=== PATIENT | female | born 1995 | race Two or more races ===

== ENCOUNTER 2016-11-08 17:29 | Emergency (ER) | payer OTHER ==
[~2016-11-08] VITALS: Ht 162.6 cm; Wt 80.7 kg
[2016-11-08] MEDS ORDERED: IV NORMAL SALINE 1000ML BAG 1,000 ML IV SCH (19:20)
[2016-11-08 19:27] VITALS: BP 131/89
[2016-11-08] MEDS ORDERED: ACETAMINOPHEN 500 MG TABLET PO ONE (19:30)
[2016-11-08] MEDS ORDERED: ONDANSETRON PF 4 MG/2 ML VIAL. IV ONE (19:30)
[2016-11-08 19:52] LABS: CALCIUM 8.8 mg/dL (8.5-10.1); CREATININE 0.7 mg/dL (0.6-1.0); GFR 106.7; POTASSIUM 3.3 mmol/L (3.5-5.1)
[2016-11-08] MEDS ORDERED: ONDA4TAB10 SL (20:04)
--- NOTE | 2016-11-08 20:04 | PHYS DOC ---
Past Medical History Past Medical History: No Pertinent History Past Surgical History: No Surgical History Alcohol Use: None Drug Use: None Adult General Chief Complaint Chief Complaint: ABDOMINAL PAIN IN HPI HPI Patient is a 20 year old female approx 14 wks with single IUP who presents with mild crampy bilateral lower abdominal pain associated with nonbloody nonbilious emesis. States last time she vomited was this morning. She denies fever or chills, diarrhea, dysuria, back pain, bloody or dark stools. Review of Systems Review of Systems Constitutional: Denies fever or chills [] Eyes: Denies change in visual acuity, redness, or eye pain [] HENT: Denies nasal congestion or sore throat [] Respiratory: Denies cough or shortness of breath [] Cardiovascular: No additional information not addressed in HPI [] GI: Denies bloody stools or diarrhea [] : Denies dysuria or hematuria [] Musculoskeletal: Denies back pain or joint pain [] Integument: Denies rash or skin lesions [] Neurologic: Denies headache, focal weakness or sensory changes [] Endocrine: Denies polyuria or polydipsia [] Current Medications Current Medications Current Medications Medications (Trade) Dose Ordered Sig/Dylan Start Time Stop Time Status Last Admin Dose Admin Acetaminophen 500 mg 500 mg 1X ONCE 11/08/16 19:30 11/08/16 19:31 DC Ondansetron HCl (Zofran) 4 mg 1X ONCE 11/08/16 19:30 11/08/16 19:31 DC Sodium Chloride (Iv Sodium Chloride 0.9% 1000ml Bag) 1,000 ml @ 1,000 mls/hr Q1H 11/08/16 19:20 11/08/16 20:19 DC Allergies Allergies Allergies Coded Allergies Type Severity Reaction Last Updated Verified No Known Drug Allergies 11/13/15 No Physical Exam Physical Exam Constitutional: Well developed, well nourished, no acute distress, non-toxic appearance. [] HENT: Normocephalic, atraumatic, bilateral external ears normal, oropharynx moist, nose normal. [] Eyes: PERRLA, EOMI. [] Neck: Normal range of motion, supple. [] Cardiovascular:Heart rate regular rhythm [] Lungs & Thorax: Bilateral breath sounds clear to auscultation [] Abdomen: Bowel sounds normal, soft, no tenderness, gravid below umbilicus. [] Skin: Warm, dry, no erythema, no rash. [] Back: No tenderness, no CVA tenderness. [] Extremities: No tenderness, ROM intact, no edema. [] Neurologic: Alert and oriented X 3, normal motor function, normal sensory function, no focal deficits noted. [] Psychologic: Affect normal, judgement normal, mood normal. [] Current Patient Data Vital Signs Vital Signs Date Time Temp Pulse Resp B/P Pulse Ox O2 Delivery O2 Flow Rate FiO2 11/08/16 19:27 114 131/89 98 Room Air 11/08/16 17:52 98.8 16 98.8 Lab Values Laboratory Tests Test 11/08/16 18:20 11/08/16 19:10 POC Urine HCG, Qualitative Hcg positive (Negative) Sodium Level 138mmol/L (136-145) Potassium Level 3.3mmol/L (3.5-5.1) L Chloride Level 103mmol/L (98-107) Carbon Dioxide Level 23mmol/L (21-32) Anion Gap 12 (6-14) Blood Urea Nitrogen 5mg/dL (7-20) L Creatinine 0.7mg/dL (0.6-1.0) Estimated GFR (Cockcroft-Gault) 106.7 Glucose Level 113mg/dL (70-99) H Calcium Level 8.8mg/dL (8.5-10.1) Laboratory Tests 11/08/16 19:10 Course & Med Decision Making Course & Med Decision Making Pertinent Labs and Imaging studies reviewed. (See chart for details) Bedside ultrasound performed and interpreted by me showing single IUP with heart rate of 153. Laboratory evaluation is unremarkable. She is feeling better after medications and tolerating oral intake. She would like to go home. Return precautions given. She understands and agrees with plan. Dragon Disclaimer Dragon Disclaimer This electronic medical record was generated, in whole or in part, using a voice recognition dictation system. Departure Departure Impression: Primary Impression: Abdominal pain during Additional Impression: Nausea and vomiting Disposition: HOME, SELF-CARE Condition: STABLE Referrals: NO PCP (PCP) Patient Instructions: Abdominal Pain During , [id number] Additional Instructions: Take Tylenol as needed for pain. Take Zofran as needed for nausea. Follow-up with your OB doctor within one week. Return for any concerns. Scripts Ondansetron (Zofran Odt)4 Mg Tab.rapdis1 Tab SL Q8HRS #10 TAB Prov:Mahad DAVENPORT MD 11/08/16 Problem Qualifiers Primary Impression: Abdominal pain during Trimester: second trimester Qualified Code: O26.892 - Other specified related conditions, second trimester Additional Impression: Nausea and vomiting Vomiting type: unspecified Vomiting Intractability: non-intractable Qualified Code: R11.2 - Nausea with vomiting, unspecified Mahad DAVENPORT MD Nov 08, 2016 20:04
== END 2016-11-08 20:27 | disposition home or self-care (01) ==
LOC: ER 17:29
DX: O26.892 Other specified pregnancy related conditions, second trimester (principal); R10.31 Right lower quadrant pain; R10.32 Left lower quadrant pain; O21.0 Mild hyperemesis gravidarum; Z3A.14 14 weeks gestation of pregnancy
CPT/HCPCS: 36415; 80048; 81025; 99285-25

== ENCOUNTER 2016-12-08 20:29 | Emergency (ER) | payer SELFPAY ==
[~2016-12-08] VITALS: Ht 162.6 cm; Wt 80.7 kg
[~2016-12-08 20:29] MED LIST: ONDA4TAB10 SL
[2016-12-08 21:05] VITALS: BP 124/76
[2016-12-08 21:21] LABS: BASO # 0.1 x10^3/uL (0.0-0.2); BASO % 1 % (0-3); EOS % 0 % (0-3); HEMATOCRIT 35.8 % (36.0-47.0); HEMOGLOBIN 11.8 g/dL (12.0-15.5); LYMPH # 2.5 x10^3/uL (1.0-4.8); LYMPH % 20 % (24-48); MEAN CORPUSCULAR HEMOGLOBIN 27 pg (25-35); MEAN CORPUSCULAR HGB CONC 33 g/dL (31-37); MEAN CORPUSCULAR VOLUME 81 fL (79-100); MONO % 5 % (0-9); NEUT % 74 % (31-73); PLATELET COUNT 355 x10^3/uL (140-400); RED BLOOD COUNT 4.45 x10^6/uL (3.50-5.40); RED CELL DISTRIBUTION WIDTH 15.4 % (11.5-14.5); WHITE BLOOD COUNT 12.5 x10^3/uL (4.0-11.0)
[2016-12-08 21:22] LABS: BILIRUBIN,URINE NEGATIVE (NEG); GLUCOSE,URINE NEGATIVE (NEG); NITRITE,URINE NEGATIVE (NEG); PH,URINE 6.5; PROTEIN,URINE NEGATIVE (NEG-TRACE)
--- NOTE | 2016-12-08 21:25 | PHYS DOC ---
Past Medical History Past Medical History: No Pertinent History Past Surgical History: No Surgical History Alcohol Use: None Drug Use: None Adult General Chief Complaint Chief Complaint: VAGINAL BLEEDING HPI HPI Patient is a 20 year old female who presents with complaint of vaginal bleeding and lower abdominal and pelvic cramping. Patient states that her bleeding started earlier today and has currently resolved. Patient is approximately 18 weeks with estimated date of delivery to be April. Patient follows a Dr. Martins for care. Patient states that she had a small amount of bleeding earlier today but has had none since. Patient states that she has had no complications noted throughout her . Patient states that she is having mild pressure-like pain in her lower abdomen. Denies nausea, fevers, or vomiting. Patient has not taken any medications to help with her symptoms. Patient denies any known exacerbating factors for her pain. Review of Systems Review of Systems Constitutional: Denies fever or chills [] Eyes: Denies change in visual acuity, redness, or eye pain [] HENT: Denies nasal congestion or sore throat [] Respiratory: Denies cough or shortness of breath [] Cardiovascular: Denies chest pain or edema [] GI: Denies abdominal pain, nausea, vomiting, bloody stools or diarrhea [] : Pelvic pain, vaginal bleeding [] Musculoskeletal: Denies back pain or joint pain [] Integument: Denies rash or skin lesions [] Neurologic: Denies headache, focal weakness or sensory changes [] Endocrine: Denies polyuria or polydipsia [] Current Medications Current Medications Current Medications Medications (Trade) Dose Ordered Sig/[facility] Start Time Stop Time Status Last Admin Dose Admin Sodium Chloride 1,000 ml @ 1,000 mls/hr Q1H 12/08/16 21:30 12/08/16 22:29 12/08/16 21:24 1,000 MLS/HR Allergies Allergies Allergies Coded Allergies Type Severity Reaction Last Updated Verified No Known Drug Allergies 11/13/15 No Physical Exam Physical Exam Constitutional: Well developed, well nourished, no acute distress, non-toxic appearance. [] HENT: Normocephalic, atraumatic, bilateral external ears normal, oropharynx moist, no oral exudates, nose normal. [] Eyes: PERRLA, EOMI, conjunctiva normal, no discharge. [] Neck: Normal range of motion, no tenderness, supple, no stridor. [] Cardiovascular:Heart rate regular rhythm, no murmur [] Lungs & Thorax: Bilateral breath sounds clear to auscultation [] Abdomen: Bowel sounds normal, soft, no tenderness, no masses, no pulsatile masses. Pelvic: Normal external exam, no visible blood in vaginal canal, cervical os closed, no cervical motion tenderness, no midline or bilateral adnexal tenderness on bimanual exam [] Skin: Warm, dry, no erythema, no rash. [] Back: No tenderness, no CVA tenderness. [] Extremities: No tenderness, no cyanosis, no clubbing, ROM intact, no edema. [] Neurologic: Alert and oriented X 3, normal motor function, normal sensory function, no focal deficits noted. [] Current Patient Data Vital Signs Vital Signs Date Time Temp Pulse Resp B/P (MAP) Pulse Ox O2 Delivery O2 Flow Rate FiO2 12/08/16 21:05 98.2 76 20 124/76 (92) 99 Room Air 98.2 Lab Values Laboratory Tests Test 12/08/16 20:14 12/08/16 21:05 12/08/16 21:09 POC Urine HCG, Qualitative Hcg positive (Negative) Urine Collection Type Unknown Urine Color Yellow Urine Clarity Clear Urine pH 6.5 Urine Specific [place] 1.015 Urine Protein Negative mg/dL (NEG-TRACE) Urine Glucose (UA) Negative mg/dL (NEG) Urine Ketones (Stick) Negative mg/dL (NEG) Urine Blood Trace (NEG) Urine Nitrite Negative (NEG) Urine Bilirubin Negative (NEG) Urine Urobilinogen Dipstick 1.0 mg/dL (0.2 mg/dL) Urine Leukocyte Esterase Negative (NEG) Urine RBC Occ /HPF (0-2) Urine WBC 1-4 /HPF (0-4) Urine Squamous Epithelial Cells Mod /LPF Urine Bacteria Moderate /HPF (0-FEW) Urine Mucus Slight /LPF White Blood Count 12.5 x10^3/uL (4.0-11.0) H Red Blood Count 4.45 x10^6/uL (3.50-5.40) Hemoglobin 11.8 g/dL (12.0-15.5) L Hematocrit 35.8 % (36.0-47.0) L Mean Corpuscular Volume 81 fL (79-100) Mean Corpuscular Hemoglobin 27 pg (25-35) Mean Corpuscular Hemoglobin Concent 33 g/dL (31-37) Red Cell Distribution Width 15.4 % (11.5-14.5) H Platelet Count 355 x10^3/uL (140-400) Neutrophils (%) (Auto) 74 % (31-73) H Lymphocytes (%) (Auto) 20 % (24-48) L Monocytes (%) (Auto) 5 % (0-9) Eosinophils (%) (Auto) 0 % (0-3) Basophils (%) (Auto) 1 % (0-3) Neutrophils # (Auto) 9.3 x10^3uL (1.8-7.7) H Lymphocytes # (Auto) 2.5 x10^3/uL (1.0-4.8) Monocytes # (Auto) 0.6 x10^3/uL (0.0-1.1) Eosinophils # (Auto) 0.1 x10^3/uL (0.0-0.7) Basophils # (Auto) 0.1 x10^3/uL (0.0-0.2) Prothrombin Time 12.3 SEC (11.7-14.0) Prothrombin Time INR 1.0 (0.8-1.1) PTT 27 SEC (24-38) Sodium Level 138 mmol/L (136-145) Potassium Level 4.2 mmol/L (3.5-5.1) Chloride Level 102 mmol/L (98-107) Carbon Dioxide Level 25 mmol/L (21-32) Anion Gap 11 (6-14) Blood Urea Nitrogen 9 mg/dL (7-20) Creatinine 0.5 mg/dL (0.6-1.0) L Estimated GFR (Cockcroft-Gault) 157.3 Glucose Level 87 mg/dL (70-99) Calcium Level 9.0 mg/dL (8.5-10.1) Magnesium Level 1.6 mg/dL (1.8-2.4) L Laboratory Tests 12/08/16 21:09 Laboratory Tests 12/08/16 21:09 Microbiology 12/08/16 Wet Prep - Final, Complete EKG EKG Not performed [] Radiology/Procedures Radiology/Procedures Limited bedside transabdominal ultrasound are formed and interpreted by myself: Intrauterine , heart rate 151 bpm, frequent movements, no significant pelvic free fluid [] Course & Med Decision Making Course & Med Decision Making Pertinent Labs and Imaging studies reviewed. (See chart for details) Patient's ultrasound showed a normal viable intrauterine . Based off of patient's estimated date of delivery, the patient currently is 18 weeks and 1 day estimated gestational age. The patient's urine shows evidence of leukocytes and bacteria and patient will be started Macrobid. Advised follow-up with patient's SECURITIES ANALYST in the next 3-4 days. Advised return emergency department for any worsening symptoms. Dragon Disclaimer Dragon Disclaimer This electronic medical record was generated, in whole or in part, using a voice recognition dictation system. Departure Departure Impression: Primary Impression: Vaginal bleeding during , antepartum Additional Impression: UTI (urinary tract infection) Disposition: 01 HOME, SELF-CARE Condition: IMPROVED Referrals: NO PCP (PCP) ISABELLE MARTINS MD Patient Instructions: - Urinary Tract Infection, Vaginal Bleeding During , Second Trimester Additional Instructions: Follow-up with Dr. Martins in the next 3-4 days. Return to the emergency department for any worsening symptoms. Scripts Nitrofurantoin Monohyd/M-Cryst (MACROBID 100 MG CAPSULE) 100 Mg Capsule 1 CAP PO BID, #14 CAP Prov: REMBERTO CARRION MD 12/08/16 Problem Qualifiers Additional Impression: UTI (urinary tract infection) Urinary tract infection type: site unspecified Hematuria presence: without hematuria Qualified Codes: N39.0 - Urinary tract infection, site not specified REMBERTO CARRION MD December 08, 2016 21:25
[2016-12-08 21:29] LABS: CREATININE 0.5 mg/dL (0.6-1.0); GFR 157.3; MAGNESIUM 1.6 mg/dL (1.8-2.4); POTASSIUM 4.2 mmol/L (3.5-5.1)
[2016-12-08] MEDS ORDERED: IV NORMAL SALINE 1000ML BAG 1,000 ML IV SCH (21:30)
[2016-12-08 21:31] LABS: BACTERIA,URINE MODERATE /HPF (0-FEW); RBC,URINE OCC /HPF (0-2)
[2016-12-08 21:32] LABS: SQUAMOUS EPITHELIAL CELL,UR MOD /LPF
[2016-12-08 21:32] LABS: PROTHROMBIN TIME PATIENT 12.3 SEC (11.7-14.0)
[2016-12-08] MEDS ORDERED: NITR100C62 PO (22:25)
== END 2016-12-08 22:50 | disposition home or self-care (01) ==
LOC: ER 20:29
DX: O46.92 Antepartum hemorrhage, unspecified, second trimester (principal); O23.42 Unspecified infection of urinary tract in pregnancy, second trimester; Z3A.18 18 weeks gestation of pregnancy
CPT/HCPCS: 80048; 81001; 83735; 84703; 85027; 85610; 85730; 86900; 86901; 87086; 96360; 99285; J7030; Q0111; 36415; 81025; 87491; 87591

== ENCOUNTER 2017-04-01 17:59 | Observation (INO) | payer OTHER ==
[~2017-04-01 17:59] MED LIST changes: +NITR100C62 PO
[2017-04-01] MEDS ORDERED: IV RINGERS,LACTATED 1000ML 1,000 ML IV SCH (19:17)
[2017-04-01 19:49] LABS: BILIRUBIN,URINE NEGATIVE (NEG); GLUCOSE,URINE NEGATIVE (NEG); NITRITE,URINE NEGATIVE (NEG); PROTEIN,URINE NEGATIVE (NEG-TRACE)
[2017-04-01 19:56] LABS: BARBITURATES NEG (NEG); BENZODIAZEPINES NEG (NEG); CANNABINOIDS NEG (NEG); COCAINE NEG (NEG); METHADONE NEG (NEG); OPIATES NEG (NEG); PHENCYCLIDINE NEG (NEG)
[2017-04-01 19:58] LABS: BACTERIA,URINE FEW /HPF (0-FEW); RBC,URINE 0 /HPF (0-2); SQUAMOUS EPITHELIAL CELL,UR MOD /LPF
== END 2017-04-01 20:24 | disposition home or self-care (01) ==
LOC: 3 SO LND 17:59
PROVIDERS: ADMIT Specialist; ATTEND Specialist
DX: O26.853 Spotting complicating pregnancy, third trimester (principal); Z3A.34 34 weeks gestation of pregnancy
CPT/HCPCS: 80307; 81001; G0378; G0379; G0479

== ENCOUNTER 2017-04-23 16:42 | Emergency (ER) | payer OTHER ==
[~2017-04-23] VITALS: Ht 162.6 cm; Wt 81.6 kg
--- NOTE | 2017-04-23 18:24 | PHYS DOC ---
Past Medical History Past Medical History: No Pertinent History Additional Past Medical Histor: preeclampsia Past Surgical History: Alcohol Use: None Drug Use: None Adult General Chief Complaint Chief Complaint: HYPERTENSION HPI HPI Patient is a 21 year old four-day female who delivered at this facility who presents from patient's MECH[employer]ICS [employer] office with report of hypertension. Patient's blood pressure noted to be 150/100 on ED arrival. Patient denies headache, vision changes, chest pain, shortness of breath, or abdominal pain . She does persistent lower extremity swelling. No other acute symptoms or complaints. Patient is not currently on antihypertensive medications. She denies taking blood pressure medications during and denies prior history of hypertension. Patient's MECHANICS HANDY[employer] is Dr. Martins. [] Review of Systems Review of Systems ROS as per HPI. Current Medications Current Medications Current Medications Medications (Trade) Dose Ordered Sig/Dylan Start Time Stop Time Status Last Admin Dose Admin Nifedipine (Procardia Xl) 30 mg DAILY 04/23/17 17:30 04/23/17 19:54 DC 04/23/17 17:44 30 MG Allergies Allergies Allergies Coded Allergies Type Severity Reaction Last Updated Verified No Known Drug Allergies 11/13/15 No Physical Exam Physical Exam Constitutional: Well developed, well nourished, no acute distress, non-toxic appearance. [] HENT: Normocephalic, atraumatic, bilateral external ears normal, oropharynx moist, no oral exudates, nose normal. [] Eyes: PERRLA, EOMI, conjunctiva normal, no discharge. [] Neck: Normal range of motion, no tenderness, supple, no stridor. [] Cardiovascular:Heart rate regular rhythm, no murmur [] Lungs & Thorax: Bilateral breath sounds clear to auscultation [] Abdomen: Bowel sounds normal, soft, no tenderness, no masses, no pulsatile eliezer. [] Extremities: No tenderness, 1+ symmetric pitting edema. Negative Homans signs.. [] Neurologic: Alert and oriented X 3, cranial nerves II through XII grossly intact , normal motor function, normal sensory function, no focal deficits noted. [] Psychologic: Affect normal, judgement normal, mood normal. [] Current Patient Data Vital Signs Vital Signs Date Time Temp Pulse Resp B/P (MAP) Pulse Ox O2 Delivery O2 Flow Rate FiO2 04/23/17 19:30 80 20 98 04/23/17 17:44 142/97 04/23/17 17:00 98.3 Room Air 98.3 Lab Values Laboratory Tests Test 04/23/17 18:22 04/23/17 18:35 Urine Collection Type Unknown Urine Color Red Urine Clarity Cloudy Urine pH 7.5 Urine Specific [place] 1.015 Urine Protein 30 mg/dL (NEG-TRACE) Urine Glucose (UA) Negative mg/dL (NEG) Urine Ketones (Stick) Negative mg/dL (NEG) Urine Blood Large (NEG) Urine Nitrite Positive (NEG) Urine Bilirubin Negative (NEG) Urine Urobilinogen Dipstick 0.2 mg/dL (0.2 mg/dL) Urine Leukocyte Esterase Large (NEG) Urine RBC >40 /HPF (0-2) Urine WBC 20-40 /HPF (0-4) Urine Squamous Epithelial Cells Few /LPF Urine Bacteria Many /HPF (0-FEW) Urine Mucus Slight /LPF White Blood Count 14.6 x10^3/uL (4.0-11.0) H Red Blood Count 4.60 x10^6/uL (3.50-5.40) Hemoglobin 11.7 g/dL (12.0-15.5) L Hematocrit 36.5 % (36.0-47.0) Mean Corpuscular Volume 79 fL (79-100) Mean Corpuscular Hemoglobin 26 pg (25-35) Mean Corpuscular Hemoglobin Concent 32 g/dL (31-37) Red Cell Distribution Width 16.0 % (11.5-14.5) H Platelet Count 384 x10^3/uL (140-400) Neutrophils (%) (Auto) 72 % (31-73) Lymphocytes (%) (Auto) 21 % (24-48) L Monocytes (%) (Auto) 6 % (0-9) Eosinophils (%) (Auto) 2 % (0-3) Basophils (%) (Auto) 1 % (0-3) Neutrophils # (Auto) 10.4 x10^3uL (1.8-7.7) H Lymphocytes # (Auto) 3.0 x10^3/uL (1.0-4.8) Monocytes # (Auto) 0.8 x10^3/uL (0.0-1.1) Eosinophils # (Auto) 0.2 x10^3/uL (0.0-0.7) Basophils # (Auto) 0.1 x10^3/uL (0.0-0.2) Sodium Level 140 mmol/L (136-145) Potassium Level 3.9 mmol/L (3.5-5.1) Chloride Level 102 mmol/L (98-107) Carbon Dioxide Level 30 mmol/L (21-32) Anion Gap 8 (6-14) Blood Urea Nitrogen 9 mg/dL (7-20) Creatinine 0.5 mg/dL (0.6-1.0) L Estimated GFR (Cockcroft-Gault) 155.7 BUN/Creatinine Ratio 18 (6-20) Glucose Level 88 mg/dL (70-99) Calcium Level 8.8 mg/dL (8.5-10.1) Total Bilirubin 0.2 mg/dL (0.2-1.0) Aspartate Amino Transferase (AST) 15 U/L (15-37) Alanine Aminotransferase (ALT) 16 U/L (14-59) Alkaline Phosphatase 122 U/L (46-116) H Total Protein 7.2 g/dL (6.4-8.2) Albumin 2.8 g/dL (3.4-5.0) L Albumin/Globulin Ratio 0.6 (1.0-1.7) L Laboratory Tests 04/23/17 18:35 Laboratory Tests 04/23/17 18:35 EKG EKG [] Radiology/Procedures Radiology/Procedures [] Course & Med Decision Making Course & Med Decision Making Pertinent Labs and Imaging studies reviewed. (See chart for details) [Patient's recent inpatient labs reviewed without evidence of end-stage organ disease. Patient's blood pressure elevated in the emergency department. however , the patient is asymptomatic. Additional labs will be obtained to rule out progression or recurrent preeclampsia in as part of.. Case reviewed with Dr. Martins. Recommendations are to discharge home on Procardia with close follow-up in office. Blood pressure improved with treatment in the ED. Return precautions reviewed. Patient verbalizes understanding agreement discharge instructions prior to departure.] Dragon Disclaimer Dragon Disclaimer This electronic medical record was generated, in whole or in part, using a voice recognition dictation system. Departure Departure Impression: Primary Impression: Hypertension Additional Impression: Preeclampsia in period Disposition: 01 HOME, SELF-CARE Referrals: NO PCP (PCP) ISABELLE MARTINS MD Patient Instructions: Hypertension During , [id number] Additional Instructions: Please take newly prescribed blood pressure medication as directed and follow- up with Dr. Hernandes in the office in 3-5 days for reevaluation of blood pressure. He develop new or worsening symptoms including headache, change of vision, chest pain, shortness of breath or worsening leg swelling, please return to the emergency department. Problem Qualifiers KAM KLEIN DO Apr 23, 2017 18:24
[2017-04-23 18:35] LABS: BILIRUBIN,URINE NEGATIVE (NEG); GLUCOSE,URINE NEGATIVE (NEG); NITRITE,URINE POSITIVE (NEG); PH,URINE 7.5; PROTEIN,URINE 30 mg/dL (NEG-TRACE); UROBILINOGEN,URINE 0.2 mg/dL (0.2 mg/dL)
[2017-04-23 18:45] LABS: BACTERIA,URINE MANY /HPF (0-FEW); RBC,URINE >40 /HPF (0-2); SQUAMOUS EPITHELIAL CELL,UR FEW /LPF; WBC,URINE 20-40 /HPF (0-4)
[2017-04-23 18:46] LABS: BASO # 0.1 x10^3/uL (0.0-0.2); BASO % 1 % (0-3); EOS % 2 % (0-3); HEMATOCRIT 36.5 % (36.0-47.0); HEMOGLOBIN 11.7 g/dL (12.0-15.5); LYMPH % 21 % (24-48); MEAN CORPUSCULAR HEMOGLOBIN 26 pg (25-35); MEAN CORPUSCULAR HGB CONC 32 g/dL (31-37); MEAN CORPUSCULAR VOLUME 79 fL (79-100); MONO % 6 % (0-9); NEUT % 72 % (31-73); PLATELET COUNT 384 x10^3/uL (140-400); WHITE BLOOD COUNT 14.6 x10^3/uL (4.0-11.0)
[2017-04-23 18:55] LABS: CALCIUM 8.8 mg/dL (8.5-10.1); CREATININE 0.5 mg/dL (0.6-1.0); GFR 155.7; POTASSIUM 3.9 mmol/L (3.5-5.1)
[2017-04-23 19:00] LABS: ALBUMIN 2.8 g/dL (3.4-5.0); ALBUMIN/GLOBULIN RATIO 0.6 (1.0-1.7); TOTAL BILIRUBIN 0.2 mg/dL (0.2-1.0); TOTAL PROTEIN 7.2 g/dL (6.4-8.2)
[2017-04-23 19:30] VITALS: BP 145/87
--- NOTE | 2017-04-24 08:49 | EKG ---
[facility] [address] [place] [address] Test Date: 2017-04-23 Test Time: 17:09:56 Pat Name: KELECHI MARTÍNEZ Department: Room: Gender: F Jboss Architect: NADER : [id number] Requested By: KAM KLEIN Order Number: [id number] Reading MD: Jo Ann Johns Measurements Intervals Holiday Rate: 82 P: 0 DE: 142 QRS: 12 QRSD: 104 T: 20 QT: 358 QTc: 421 Interpretive Statements SINUS RHYTHM NORMAL ECG Electronically Signed On 04-27-2017 15:30:00 CDT by Jo Ann Johns
== END 2017-04-23 19:49 | disposition home or self-care (01) ==
LOC: ER 16:42
DX: O16.5 Unspecified maternal hypertension, complicating the puerperium (principal); O14.95 Unspecified pre-eclampsia, complicating the puerperium
CPT/HCPCS: 36415; 80053; 81001; 85025; 87086; 93005; 99285-25

== ENCOUNTER 2017-12-05 21:51 | Emergency (ER) | payer OTHER | END 2017-12-05 21:55 | disposition left against medical advice (07) | LOC: ER 21:55 | DX: R05 Cough (principal); R09.81 Nasal congestion; Z53.21 Procedure and treatment not carried out due to patient leaving prior to being seen by health care provider ==

== ENCOUNTER 2017-12-07 14:12 | Emergency (ER) | payer OTHER | END 2017-12-07 14:38 | disposition home or self-care (01) | LOC: ER 14:38 | DX: J01.90 Acute sinusitis, unspecified (principal); J40 Bronchitis, not specified as acute or chronic | CPT/HCPCS: 99283 ==

== ENCOUNTER 2018-08-02 21:36 | Emergency (ER) | payer OTHER ==
[~2018-08-02] VITALS: Ht 162.6 cm; Wt 90.7 kg
[~2018-08-02 21:36] MED LIST changes: +AMOX1TAB61 PO; +BENZ100C PO
[2018-08-02 22:00] VITALS: BP 135/73
--- NOTE | 2018-08-02 22:38 | PHYS DOC ---
Past Medical History Past Medical History: Hypertension Additional Past Medical Histor: preeclampsia Past Surgical History: Alcohol Use: None Drug Use: None Adult General Chief Complaint Chief Complaint: CHEST PAIN [facility] HPI Patient is 22 yo female w/ PMH HTN who presents with complaint of intermittent chest pressure since this morning. patient does not recall any event or movement associated with the beginning of the chest pressure, nor is she able to identify any triggers for the chest pressure. She does note that she should be taking medication for her HTN but has not had a dose in 2 months because she forgets to reorder it. She reports that occasionally she can tell when her BP is elevated because she gets a headache but has never had chest pressure. Associated symptoms include shortness of breath with activity, mild headache. Patient denies recent cold symptoms, chest pain, nausea, vomiting, diarrhea, pain with urination, vaginal bleeding or dc, lower extremity swelling or pain. She denies recent travel, prolonged immobilization, family history of DVT/PE/clotting disorder. She denies tobacco use, etoh use, or drug use. She has had bronchitis previously but says this chest pressure feels different. She also denies any recent increase in stress or previous hx of anxiety. This is the patient's 3rd . Her first resulted in c section at 35w5d with healthy baby. Second patient was diagnosed with preeclampsia and had vaginal delivery at 37w. Review of Systems Review of Systems Constitutional: Denies fever or chills [] Eyes: Denies change in visual acuity, redness, or eye pain [] HENT: Denies nasal congestion or sore throat [] Respiratory: Denies cough or shortness of breath [] Cardiovascular: No additional information not addressed in HPI [] GI: Denies abdominal pain, nausea, vomiting, bloody stools or diarrhea [] : Denies dysuria or hematuria [] Musculoskeletal: Denies back pain or joint pain [] Integument: Denies rash or skin lesions [] Neurologic: Denies headache, focal weakness or sensory changes [] Endocrine: Denies polyuria or polydipsia [] All other systems were reviewed and found to be within normal limits, except as documented in this note. Current Medications Current Medications Current Medications Medications (Trade) Dose Ordered Sig/Dylan Start Time Stop Time Status Last Admin Dose Admin Famotidine (Pepcid Vial) 20 mg 1X ONCE 08/02/18 23:30 08/02/18 23:30 DC 08/02/18 23:10 20 MG Allergies Allergies Allergies Coded Allergies Type Severity Reaction Last Updated Verified No Known Drug Allergies 11/13/15 No Physical Exam Physical Exam Constitutional: Well developed, well nourished, no acute distress, non-toxic appearance. [] HENT: Normocephalic, atraumatic, bilateral external ears normal, oropharynx moist, no oral exudates, nose normal. [] Eyes: EOMI, conjunctiva normal, no discharge. [] Neck: Normal range of motion, no tenderness, supple, no stridor. [] Cardiovascular:Heart rate regular rhythm, no murmur [] Lungs & Thorax: Bilateral breath sounds clear to auscultation [] Abdomen: Soft, no tenderness, no masses, no pulsatile masses. [] Skin: Warm, dry, no erythema, no rash. [] Extremities: No tenderness, no cyanosis, no clubbing, ROM intact, no edema. No palpable cords, No swelling. [] Neurologic: Alert and oriented X 3, normal motor function, normal sensory function, no focal deficits noted. [] Psychologic: Affect normal, judgement normal, mood normal. [] Current Patient Data Vital Signs Vital Signs Date Time Temp Pulse Resp B/P (MAP) Pulse Ox O2 Delivery O2 Flow Rate FiO2 08/02/18 22:00 98.9 88 18 135/73 (93) 97 Room Air 98.9 EKG EKG [] Interpretation Time: @2151. HR 82 BPM: sinys rhythm. NO ST elevation Radiology/Procedures Radiology/Procedures [] Course & Med Decision Making Course & Med Decision Making Patient is 22 yo with HTN who presents with complaint of intermittent chest pressure beginning this morning. Patient is 18 weeks . Patient has not HTN medication for 2 months, but previously she gets headache as symptom of HBP. Patient has never experienced this before. She has no history of prolonged immobilization or travel. On physical exam she is resting comfortably in bed, not hypoxic, and not tachycardic. Lower extremities are not not edematous and no palpable cords are present. EKG reveals HR 82 BPM sinus rhythm. Patient is not experiencing symptoms at this time. As patient is not hypoxic, tachycardic, with no risk factors for hypercoagulability besides , do not feel that the work up for PE warrants the risk. Additionally, patient is not hypertensive and does not need intervention. Patient admits to having reflux with previous pregnancies, which we treated with IV pepcid and gave prescription. Discussed with patient that although we do not know the cause of her chest pressure we feel comfortable that she is stable to dc home. Patient made aware that if symptoms return she should return to ED. Patient voiced understanding and agreement with plan. Dragon Disclaimer Dragon Disclaimer This electronic medical record was generated, in whole or in part, using a voice recognition dictation system. Departure Departure Impression: Primary Impression: Atypical chest pain Additional Impression: Disposition: HOME, SELF-CARE Condition: STABLE Referrals: XU OLIVER MD (PCP) Patient Instructions: ABCs of , Chest Pain (Nonspecific), [id number] Scripts Famotidine (PEPCID) 20 Mg Tablet 20 MG PO BID, #20 TAB Prov: LYNNE WILL DO 08/02/18 Problem Qualifiers Additional Impression: Weeks of gestation: unspecified Qualified Codes: Z34.90 - Encounter for supervision of normal , unspecified, unspecified trimester LYNNE WILL DO Aug 02, 2018 22:38
[2018-08-02] MEDS ORDERED: FAMO-63 PO (22:57)
[2018-08-02] MEDS ORDERED: FAMOTIDINE 20 MG/2 ML VIAL IVP ONE (23:30)
--- NOTE | 2018-08-04 08:38 | EKG ---
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
== END 2018-08-02 23:18 | disposition home or self-care (01) ==
LOC: ER 21:36
DX: O26.892 Other specified pregnancy related conditions, second trimester (principal); R07.89 Other chest pain; R51 Headache; R06.02 Shortness of breath; O16.2 Unspecified maternal hypertension, second trimester; Z3A.18 18 weeks gestation of pregnancy
CPT/HCPCS: 93005; 96374; 99283; J3490

== ENCOUNTER 2018-08-19 20:54 | Observation (INO) | payer OTHER ==
[~2018-08-19 20:54] MED LIST changes: +FAMO-63 PO
[2018-08-19] MEDS ORDERED: IV RINGERS,LACTATED 1000ML 1,000 ML IV PRN (21:00)
[2018-08-19 21:21] LABS: BILIRUBIN,URINE NEGATIVE (NEG); CLARITY,URINE CLOUDY; COLOR,URINE YELLOW; NITRITE,URINE NEGATIVE (NEG); PH,URINE 6.5; PROTEIN,URINE NEGATIVE (NEG-TRACE)
[2018-08-19 21:27] LABS: AMNIO PT NEGATIVE; BARBITURATES NEG (NEG); BENZODIAZEPINES NEG (NEG); CANNABINOIDS NEG (NEG); COCAINE NEG (NEG); METHADONE NEG (NEG); OPIATES NEG (NEG); PHENCYCLIDINE NEG (NEG)
[2018-08-19 21:29] LABS: AMPHETAMINE/METHAMPHETAMINE NEG (NEG)
[2018-08-19 21:30] LABS: BACTERIA,URINE MANY /HPF (0-FEW); RBC,URINE 0 /HPF (0-2); SQUAMOUS EPITHELIAL CELL,UR MANY /LPF
== END 2018-08-19 21:45 | disposition home or self-care (01) ==
LOC: 3 SO LND 20:54
PROVIDERS: ADMIT Specialist; ATTEND Specialist
DX: O42.92 Full-term premature rupture of membranes, unspecified as to length of time between rupture and onset of labor (principal); Z3A.20 20 weeks gestation of pregnancy
CPT/HCPCS: 36415; 80307; 81001; 84112; 87086; G0379

== ENCOUNTER 2018-10-05 22:03 | Observation (INO) | payer OTHER ==
[2018-10-05 22:42] LABS: BILIRUBIN,URINE NEGATIVE (NEG); CLARITY,URINE CLEAR; COLOR,URINE YELLOW; NITRITE,URINE NEGATIVE (NEG); PROTEIN,URINE NEGATIVE (NEG-TRACE); UROBILINOGEN,URINE 0.2 mg/dL (0.2 mg/dL)
[2018-10-05 22:47] LABS: BARBITURATES NEG (NEG); BENZODIAZEPINES NEG (NEG); CANNABINOIDS NEG (NEG); COCAINE NEG (NEG); METHADONE NEG (NEG); OPIATES NEG (NEG); PHENCYCLIDINE NEG (NEG)
[2018-10-05 22:50] LABS: BACTERIA,URINE FEW /HPF (0-FEW); RBC,URINE 0 /HPF (0-2); SQUAMOUS EPITHELIAL CELL,UR MOD /LPF
[2018-10-05 22:52] LABS: AMPHETAMINE/METHAMPHETAMINE NEG (NEG)
== END 2018-10-05 23:39 | disposition home or self-care (01) ==
LOC: 3 SO LND 22:03
PROVIDERS: ADMIT Specialist; ATTEND Specialist
DX: O26.892 Other specified pregnancy related conditions, second trimester (principal); R10.9 Unspecified abdominal pain; R19.7 Diarrhea, unspecified; Z3A.26 26 weeks gestation of pregnancy
CPT/HCPCS: 80307; 81001; G0378; G0379

== ENCOUNTER 2018-12-13 13:43 | Observation (INO) | payer OTHER ==
[2018-12-13] MEDS ORDERED: IV RINGERS,LACTATED 1000ML 1,000 ML IV SCH (13:52)
[2018-12-13 14:17] LABS: BILIRUBIN,URINE NEGATIVE (NEG); CLARITY,URINE CLEAR; COLOR,URINE YELLOW; NITRITE,URINE NEGATIVE (NEG); PH,URINE 6.5; PROTEIN,URINE NEGATIVE (NEG-TRACE)
[2018-12-13 14:27] LABS: BASO # 0.1 x10^3/uL (0.0-0.2); BASO % 1 % (0-3); EOS # 0.2 x10^3/uL (0.0-0.7); EOS % 2 % (0-3); HEMATOCRIT 29.1 % (36.0-47.0); HEMOGLOBIN 9.3 g/dL (12.0-15.5); LYMPH % 17 % (24-48); MEAN CORPUSCULAR HEMOGLOBIN 24 pg (25-35); MEAN CORPUSCULAR HGB CONC 32 g/dL (31-37); MEAN CORPUSCULAR VOLUME 74 fL (79-100); MONO # 0.5 x10^3/uL (0.0-1.1); MONO % 4 % (0-9); NEUT # 8.8 x10^3uL (1.8-7.7); NEUT % 76 % (31-73); PLATELET COUNT 340 x10^3/uL (140-400); RED BLOOD COUNT 3.91 x10^6/uL (3.50-5.40); WHITE BLOOD COUNT 11.6 x10^3/uL (4.0-11.0)
[2018-12-13 14:27] LABS: BACTERIA,URINE MODERATE /HPF (0-FEW); RBC,URINE 0 /HPF (0-2); SQUAMOUS EPITHELIAL CELL,UR MANY /LPF
[2018-12-13 14:34] LABS: CREATININE,RANDOM URINE 119.4 mg/dL (Not Establ.)
[2018-12-13 14:37] LABS: BARBITURATES NEG (NEG); BENZODIAZEPINES NEG (NEG); CANNABINOIDS NEG (NEG); COCAINE NEG (NEG); METHADONE NEG (NEG); OPIATES NEG (NEG); PHENCYCLIDINE NEG (NEG)
[2018-12-13 14:38] LABS: AMPHETAMINE/METHAMPHETAMINE NEG (NEG)
[2018-12-13 14:41] LABS: CALCIUM 8.4 mg/dL (8.5-10.1); CREATININE 0.5 mg/dL (0.6-1.0); GFR 152.9
[2018-12-13 15:05] LABS: ALBUMIN 2.3 g/dL (3.4-5.0); ALBUMIN/GLOBULIN RATIO 0.7 (1.0-1.7); TOTAL BILIRUBIN 0.2 mg/dL (0.2-1.0); TOTAL PROTEIN 5.8 g/dL (6.4-8.2)
== END 2018-12-13 15:27 | disposition home or self-care (01) ==
LOC: 3 SO LND 13:43
PROVIDERS: ADMIT Specialist; ATTEND Specialist
DX: O26.893 Other specified pregnancy related conditions, third trimester (principal); R03.0 Elevated blood-pressure reading, without diagnosis of hypertension; Z3A.37 37 weeks gestation of pregnancy
CPT/HCPCS: 36415; 80053; 80307; 81001; 82570; 84156; 84550; 85025; 87086; G0378; G0379

== ENCOUNTER 2018-12-20 21:58 | Observation (INO) | payer OTHER ==
[2018-12-20] MEDS ORDERED: ONDANSETRON PF 4 MG/2 ML VIAL. IV PRN (22:15)
[2018-12-20] MEDS ORDERED: ACETAMINOPHEN 500 MG TABLET PO PRN (22:15)
[2018-12-20] MEDS ORDERED: IV RINGERS,LACTATED 1000ML 1,000 ML IV SCH (22:30)
[2018-12-20 22:52] LABS: BILIRUBIN,URINE NEGATIVE (NEG); CLARITY,URINE CLEAR; COLOR,URINE YELLOW; NITRITE,URINE NEGATIVE (NEG); PROTEIN,URINE NEGATIVE (NEG-TRACE); UROBILINOGEN,URINE 0.2 mg/dL (0.2 mg/dL)
[2018-12-20 22:58] LABS: SQUAMOUS EPITHELIAL CELL,UR FEW /LPF
[2018-12-20 22:59] LABS: BACTERIA,URINE MODERATE /HPF (0-FEW); RBC,URINE 0 /HPF (0-2); SPERM,URINE PRESENT /HPF
[2018-12-20 23:02] LABS: AMNIO PT NEGATIVE
== END 2018-12-20 23:55 | disposition home or self-care (01) ==
LOC: 3 SO LND 21:58
PROVIDERS: ADMIT Specialist; ATTEND Specialist
DX: O62.9 Abnormality of forces of labor, unspecified (principal); O42.92 Full-term premature rupture of membranes, unspecified as to length of time between rupture and onset of labor; O26.893 Other specified pregnancy related conditions, third trimester; R03.0 Elevated blood-pressure reading, without diagnosis of hypertension; Z3A.38 38 weeks gestation of pregnancy
CPT/HCPCS: 36415; 81001; 84112; 87086; G0378; G0379

== ENCOUNTER 2018-12-21 11:29 | Observation (INO) | payer OTHER ==
[2018-12-21] MEDS ORDERED: IV RINGERS,LACTATED 1000ML 1,000 ML IV SCH (11:49)
[2018-12-21 12:27] LABS: BILIRUBIN,URINE NEGATIVE (NEG); CLARITY,URINE CLEAR; COLOR,URINE YELLOW; NITRITE,URINE NEGATIVE (NEG); PROTEIN,URINE NEGATIVE (NEG-TRACE)
[2018-12-21 12:28] LABS: BASO # 0.1 x10^3/uL (0.0-0.2); BASO % 1 % (0-3); EOS # 0.1 x10^3/uL (0.0-0.7); EOS % 1 % (0-3); HEMATOCRIT 29.1 % (36.0-47.0); HEMOGLOBIN 9.5 g/dL (12.0-15.5); LYMPH # 1.9 x10^3/uL (1.0-4.8); LYMPH % 15 % (24-48); MEAN CORPUSCULAR HEMOGLOBIN 24 pg (25-35); MEAN CORPUSCULAR HGB CONC 33 g/dL (31-37); MEAN CORPUSCULAR VOLUME 73 fL (79-100); MONO # 0.4 x10^3/uL (0.0-1.1); MONO % 3 % (0-9); NEUT # 9.8 x10^3uL (1.8-7.7); NEUT % 80 % (31-73); PLATELET COUNT 344 x10^3/uL (140-400); RED BLOOD COUNT 3.98 x10^6/uL (3.50-5.40); RED CELL DISTRIBUTION WIDTH 15.3 % (11.5-14.5); WHITE BLOOD COUNT 12.3 x10^3/uL (4.0-11.0)
[2018-12-21 12:32] LABS: CREATININE,RANDOM URINE 171.7 mg/dL (Not Establ.)
[2018-12-21 12:34] LABS: BARBITURATES NEG (NEG); BENZODIAZEPINES NEG (NEG); CANNABINOIDS NEG (NEG); COCAINE NEG (NEG); METHADONE NEG (NEG); OPIATES NEG (NEG); PHENCYCLIDINE NEG (NEG)
[2018-12-21 12:35] LABS: AMPHETAMINE/METHAMPHETAMINE NEG (NEG); BACTERIA,URINE MODERATE /HPF (0-FEW); RBC,URINE 0 /HPF (0-2); SQUAMOUS EPITHELIAL CELL,UR MOD /LPF
[2018-12-21 12:37] LABS: CALCIUM 8.2 mg/dL (8.5-10.1); CREATININE 0.6 mg/dL (0.6-1.0); GFR 123.9; POTASSIUM 3.9 mmol/L (3.5-5.1)
[2018-12-21 12:45] LABS: ALBUMIN 2.3 g/dL (3.4-5.0); ALBUMIN/GLOBULIN RATIO 0.7 (1.0-1.7); TOTAL BILIRUBIN 0.3 mg/dL (0.2-1.0); TOTAL PROTEIN 5.8 g/dL (6.4-8.2); URIC ACID 5.8 mg/dL (2.6-6.0)
== END 2018-12-21 13:15 | disposition home or self-care (01) ==
LOC: 3 SO LND 11:29
PROVIDERS: ADMIT Specialist; ATTEND Specialist
DX: O12.03 Gestational edema, third trimester (principal); R22.9 Localized swelling, mass and lump, unspecified; Z3A.38 38 weeks gestation of pregnancy
CPT/HCPCS: 36415; 80053; 80307; 81001; 82570; 84156; 84550; 85025; 86850; 86900; 86901; 87086; G0378; G0379

== ENCOUNTER 2018-12-26 13:04 | Observation (INO) | payer OTHER ==
[2018-12-26 13:54] LABS: BILIRUBIN,URINE NEGATIVE (NEG); CLARITY,URINE CLEAR; COLOR,URINE YELLOW; NITRITE,URINE NEGATIVE (NEG); PROTEIN,URINE NEGATIVE (NEG-TRACE); UROBILINOGEN,URINE 0.2 mg/dL (0.2 mg/dL)
[2018-12-26 14:00] LABS: BACTERIA,URINE MODERATE /HPF (0-FEW); RBC,URINE 0 /HPF (0-2); SQUAMOUS EPITHELIAL CELL,UR MANY /LPF; WBC,URINE TNTC /HPF (0-4)
== END 2018-12-26 14:30 | disposition home or self-care (01) ==
LOC: 3 SO LND 13:04
PROVIDERS: ADMIT Specialist; ATTEND Specialist
DX: O46.93 Antepartum hemorrhage, unspecified, third trimester (principal); O62.9 Abnormality of forces of labor, unspecified; Z3A.38 38 weeks gestation of pregnancy
CPT/HCPCS: 81001; 87086; G0379

== ENCOUNTER 2019-07-29 15:20 | Emergency (ER) | payer OTHER ==
[2019-07-29 16:23] VITALS: BP 151/83
--- NOTE | 2019-07-29 16:46 | PHYS DOC ---
Past Medical History Past Medical History: Hypertension Additional Past Medical Histor: preeclampsia Past Surgical History: Alcohol Use: None Drug Use: None Adult General Chief Complaint Chief Complaint: BACK INJURY HPI HPI Patient is a 23 year old female with history of hypertension who presents to the ED today complaining of 6 out of 10 coccyx pain that began 4 days ago after she slipped on her carpeted and fell landing on her coccyx. Patient describes the pain as sharp and intermittent worse on sitting. Denies any pain radiating to bilateral lower extremities, denies any loss of bowel bladder function. Review of Systems Review of Systems Constitutional: Denies fever or chills [] Musculoskeletal: Reports coccyx pain Integument: Denies rash or skin lesions [] Neurologic: Denies headache, focal weakness or sensory changes [] All other systems were reviewed and found to be within normal limits, except as documented in this note. Allergies Allergies Allergies Coded Allergies Type Severity Reaction Last Updated Verified No Known Drug Allergies 11/13/15 No Physical Exam Physical Exam Constitutional: Well developed, well nourished, no acute distress, non-toxic appearance. [] Abdomen: Bowel sounds normal, soft, no tenderness, no masses, no pulsatile masses. [] Skin: Warm, dry, no erythema, no rash. [] Back: Tenderness on palpation of the tip of the coccyx, no CVA tenderness. [] Extremities: No tenderness, no cyanosis, no clubbing, ROM intact, no edema. [] Neurologic: Alert and oriented X 3, normal motor function, normal sensory function, no focal deficits noted. [] Psychologic: Affect normal, judgement normal, mood normal. [] Current Patient Data Vital Signs Vital Signs Date Time Temp Pulse Resp B/P (MAP) Pulse Ox O2 Delivery O2 Flow Rate FiO2 07/29/19 16:23 98.5 114 14 151/83 (105) 96 Room Air 98.5 Lab Values Laboratory Tests Test 07/29/19 16:32 POC Urine HCG, Qualitative Hcg negative (Negative) EKG EKG [] Radiology/Procedures Radiology/Procedures []PROCEDURE: LUMBAR SPINE 2-3V EXAM: Lumbar spine, 3 views. HISTORY: Coccyx pain. Fall. COMPARISON: None. FINDINGS: 3 views lumbar spine are obtained. There is mild lumbar dextroscoliosis centered at L3. The vertebral bodies are normal in height and the disc spaces are preserved. No displaced fracture is seen. IMPRESSION: No acute osseous finding. Electronically signed by: Vickie Perry MD (07/29/2019 4:51 PM) [facility] DICTATED and SIGNED BY: VICKIE PERRY MD DATE: 07/29/19 801 Course & Med Decision Making Course & Med Decision Making Pertinent Labs and Imaging studies reviewed. (See chart for details) This is a 23-year-old female patient presenting to the ED today with coccyx pain status post falling 4 days ago. No loss of consciousness, no cauda equina syndrome symptoms. Lumbar spine x-rays interpreted by radiologist are negative for any acute findings. Discharged to home. Ice/ elevation encouraged. OTC pain relievers. Follow-up with PCP in 1-2 weeks as needed Dragon Disclaimer Dragon Disclaimer This electronic medical record was generated, in whole or in part, using a voice recognition dictation system. Departure Departure Impression: Primary Impression: Fall from standing Additional Impression: Coccyx contusion Disposition: HOME, SELF-CARE Condition: STABLE Referrals: NO PCP (PCP) Follow up with your doctor in 1-2 weeks Patient Instructions: Contusion, [id number] Additional Instructions: You were evaluated in the emergency room for coccyx pain, your lumbar spine x- rays are negative for any acute findings. Please take Tylenol/Motrin for pain. You can get a donut cushion and sit on for comfort. Follow-up with your own doctor in 1-2 weeks Problem Qualifiers Primary Impression: Fall from standing Encounter type: initial encounter Qualified Codes: W19.XXXA - Unspecified fall, initial encounter Additional Impression: Coccyx contusion Encounter type: initial encounter Qualified Codes: S30.0XXA - Contusion of lower back and pelvis, initial encounter ANA [employer] Jul 29, 2019 16:46
--- NOTE | 2019-07-29 16:54 | RAD ---
EXAM: Lumbar spine, 3 views. HISTORY: Coccyx pain. Fall. COMPARISON: None. FINDINGS: 3 views lumbar spine are obtained. There is mild lumbar dextroscoliosis centered at L3. The vertebral bodies are normal in height and the disc spaces are preserved. No displaced fracture is seen. IMPRESSION: No acute osseous finding. Electronically signed by: Vickie Perry MD (07/29/2019 4:51 PM) [id number]
== END 2019-07-29 17:10 | disposition home or self-care (01) ==
LOC: ER 15:20
DX: S30.0XXA Contusion of lower back and pelvis, initial encounter (principal); I10 Essential (primary) hypertension; W01.0XXA Fall on same level from slipping, tripping and stumbling without subsequent striking against object, initial encounter; Y93.89 Activity, other specified; Y92.89 Other specified places as the place of occurrence of the external cause; Y99.8 Other external cause status
CPT/HCPCS: 72100; 81025; 99284

== ENCOUNTER → 2020-09-21 | Outpatient (CLI) | payer OTHER ==
[2020-09-21 10:46] LABS: BASO # 0.1 x10^3/uL (0.0-0.2); BASO % 1 % (0-3); EOS # 0.1 x10^3/uL (0.0-0.7); EOS % 1 % (0-3); HEMATOCRIT 31.2 % (36.0-47.0); HEMOGLOBIN 10.4 g/dL (12.0-15.5); LYMPH # 1.8 x10^3/uL (1.0-4.8); LYMPH % 17 % (24-48); MEAN CORPUSCULAR HEMOGLOBIN 27 pg (25-35); MEAN CORPUSCULAR HGB CONC 33 g/dL (31-37); MEAN CORPUSCULAR VOLUME 82 fL (79-100); MONO # 0.4 x10^3/uL (0.0-1.1); MONO % 4 % (0-9); NEUT # 8.2 x10^3/uL (1.8-7.7); NEUT % 78 % (31-73); PLATELET COUNT 342 x10^3/uL (140-400); RED BLOOD COUNT 3.82 x10^6/uL (3.50-5.40); RED CELL DISTRIBUTION WIDTH 13.3 % (11.5-14.5); WHITE BLOOD COUNT 10.5 x10^3/uL (4.0-11.0)
== END ==
LOC: LAB 09:24
PROVIDERS: ATTEND Obstetrics & Gynecology
DX: O09.90 Supervision of high risk pregnancy, unspecified, unspecified trimester (principal); Z3A.00 Weeks of gestation of pregnancy not specified
CPT/HCPCS: 36415; 82950; 85025